=== PATIENT | female | born 1995 | race Caucasian/White ===

== ENCOUNTER 2019-12-13 03:40 | Inpatient (IN) | payer OTHER ==
[~2019-12-13] VITALS: Ht 167.6 cm; Wt 73.5 kg
[2019-12-13] MEDS ORDERED: LACTATED RINGERS 1,000 ML IV SCH (04:09)
[2019-12-13] MEDS ORDERED: AMPICILLIN 2,000 MG in NACL 0.9% MINI-BAG PLUS 100 ML IV SCH (04:10)
[2019-12-13] MEDS ORDERED: METHYLERGONOVINE 0.2 MG/ML AMP IM PRN ×2 (04:10→08:35)
[2019-12-13] MEDS ORDERED: OXYTOCIN 20 UNITS in LACTATED RINGERS 1,000 ML IV SCH (04:20)
[2019-12-13] MEDS ORDERED: fentaNYL 0.05 MG/ML VIAL IVP PRN (04:20)
[2019-12-13] MEDS ORDERED: AMPICILLIN 2,000 MG VIAL ONE (04:34)
[2019-12-13 05:28] LABS: BASOPHILS % (AUTO) 0.3 % (0.0-2.0); EOSINOPHILS % (AUTO) 0.1 % (0.0-4.0); HEMATOCRIT 38.5 % (36-48); HEMOGLOBIN 12.4 g/dL (12.0-16.0); LYMPHOCYTES # (AUTO) 1.8 K/uL (2.5-16.5); LYMPHOCYTES % (AUTO) 11.4 % (20.5-51.1); MEAN CORPUSCULAR HEMOGLOBIN 27 pg (27-31); MEAN CORPUSCULAR HGB CONC 32 g/dL (33-37); MEAN CORPUSCULAR VOLUME 85.3 fL (80-94); MONOCYTES # (AUTO) 0.8 K/uL (0.8-1.0); NEUTROPHILS # (AUTO) 13.5 K/uL (1.8-7.7); NEUTROPHILS % (AUTO) 83.2 % (42.2-75.2); PLATELET COUNT (AUTO) 231 K/uL (140-450); RED BLOOD CELL COUNT(AUTO) 4.51 MIL/uL (4.20-5.40); RED CELL DISTRIBUTION WIDTH 14.1 % (11.6-13.7); WHITE BLOOD COUNT (AUTO) 16.2 K/uL (4.8-10.8)
[2019-12-13 05:29] VITALS: BP 117/75
[2019-12-13 05:29] LABS: APPEARANCE,URINE CLOUDY (CLEAR); BILIRUBIN,URINE 1+ (NEGATIVE); BLOOD, URINE 2+ (NEGATIVE); COLOR,URINE YELLOW (YELLOW); LEUKOCYTE ESTERASE ,URINE 3+ (NEGATIVE); NITRITE, URINE NEGATIVE (NEGATIVE); UGLUCOSE NEGATIVE (NEGATIVE)
[2019-12-13 05:42] LABS: BARBITURATE, URINE NEGATIVE ng/ml (NEG <=200); BENZODIAZEPINE, URINE NEGATIVE ng/mL (NEG <=200); CANNABINOID, URINE NEGATIVE ng/mL (NEG <=50); COCAINE, URINE NEGATIVE ng/mL (NEG <=300); PHENCYCLIDINE SCREEN,URINE NEGATIVE ng/mL (NEG <=25)
[2019-12-13 05:43] LABS: OPIATE, URINE NEGATIVE ng/mL (NEG <=2000)
[2019-12-13 05:51] LABS: RBC,URINE 11-20 (MOD) /HPF (0-5); WBC,URINE 60-80 /HPF (0-5)
[2019-12-13 05:53] LABS: YEAST,URINE Moderate /HPF (None Seen)
[2019-12-13 05:58] LABS: ALBUMIN 2.7 g/dL (3.4-5.0); ANION GAP 16.7 (8-16); CARBON DIOXIDE 22.3 mmol/L (21-32); CREATININE 0.7 mg/dL (0.6-1.3); TOTAL BILIRUBIN 0.3 mg/dL (0.0-1.0)
[2019-12-13] MEDS ORDERED: LIDOCAINE 1% 500 MG/50 ML VIAL ONE (07:22)
[2019-12-13] MEDS ORDERED: OXYTOCIN 20 UNITS/LR PREMIX 1,000 ML IV ONE (07:30)
[2019-12-13] MEDS ORDERED: AMPICILLIN 1,000 MG in NACL 0.9% MINI-BAG PLUS 50 ML IV SCH (08:00)
[2019-12-13] MEDS ORDERED: TEMAZEPAM 15 MG CAP PO PRN (08:35)
[2019-12-13] MEDS ORDERED: oxyCODONE/APAP 5/325 MG 1 TAB TAB PO PRN (08:35)
[2019-12-13] MEDS ORDERED: METHYLERGONOVINE 0.2 MG TAB PO PRN (08:35)
[2019-12-13] MEDS ORDERED: HYDROcodone/APAP 5/325 MG 1 TAB TAB PO PRN (08:35)
[2019-12-13] MEDS ORDERED: BENZOCAINE/MENTHOL 20%-0.5% 60 GM CAN TP PRN (08:35)
[2019-12-13] MEDS ORDERED: OXYTOCIN 10 UNITS/ML VIAL IM PRN (08:35)
[2019-12-13] MEDS ORDERED: SODIUM PHOSPHATE 118 ML ENEM RC PRN (08:35)
--- NOTE | 2019-12-13 09:21 | NUR ---
PATIENT HAS BEEN SCREENED AND CATEGORIZED LOW NUTRITION RISK. PATIENT WILL BE SEEN WITHIN 7 DAYS OF ADMISSION. 12/19/[address]
[2019-12-13] MEDS ORDERED: AMMONIA AROMATIC 1 INHL INH ONE (09:39)
[2019-12-13] MEDS: IBUPROFEN 800 MG TAB PO PRN (16:48)
[2019-12-13] MEDS ORDERED: DOCUSATE SOD/SENNA 50/8.6 MG 1 TAB PO SCH (21:00)
[2019-12-14 05:59] LABS: HEMATOCRIT 34.6 % (36-48); HEMOGLOBIN 11.3 g/dL (12.0-16.0)
[2019-12-14] MEDS: IBUPROFEN 800 MG TAB PO PRN ×2 (08:16→16:46)
[2019-12-15] MEDS: IBUPROFEN 800 MG TAB PO PRN (01:37)
== END 2019-12-15 13:10 | disposition home or self-care (01) | DRG 560 ==
LOC: MLD 03:40 → INTOOBSV 04:19 → OBSVTOIN 04:19 → MFCC 10:20
PROVIDERS: ADMIT Obstetrics & Gynecology; ATTEND Obstetrics & Gynecology
PROC: 10907ZC Drainage of Amniotic Fluid, Therapeutic from Products of Conception, Via Natural or Artificial Opening (ICD-10-PCS; principal; 2019-12-13)
PROC: 10D07Z6 Extraction of Products of Conception, Vacuum, Via Natural or Artificial Opening (ICD-10-PCS; 2019-12-13)
PROC: 0W8NXZZ Division of Female Perineum, External Approach (ICD-10-PCS; 2019-12-13)
PROC: 3E0234Z Introduction of Serum, Toxoid and Vaccine into Muscle, Percutaneous Approach (ICD-10-PCS; 2019-12-13)
DX: O77.0 Labor and delivery complicated by meconium in amniotic fluid (principal); Z23 Encounter for immunization; Z37.0 Single live birth; Z3A.40 40 weeks gestation of pregnancy
CPT/HCPCS: 36415; 59409; 80053; 80305; 81001; 85018; 85025; 86592; 86762; 86886; 86900; 86901; 87086; 87340; 90715; G0378; J0290; J2001; J2590; J3010; J7120